=== PATIENT | female | born 1970 | race Caucasian/White ===

== ENCOUNTER 2017-01-10 20:14 | Emergency (ER) | payer BC ==
[2017-01-10 20:27] VITALS: BP 200/120
== END 2017-01-10 22:32 | disposition home or self-care (01) ==
LOC: ED 20:14 → EDBD 20:14 → ED 22:32
DX: S39.012A Strain of muscle, fascia and tendon of lower back, initial encounter (principal); F99 Mental disorder, not otherwise specified; X50.3XXA Overexertion from repetitive movements, initial encounter; Y93.89 Activity, other specified; Y92.89 Other specified places as the place of occurrence of the external cause; Y99.0 Civilian activity done for income or pay; Z88.0 Allergy status to penicillin; Z88.1 Allergy status to other antibiotic agents; Z79.3 Long term (current) use of hormonal contraceptives; Z79.899 Other long term (current) drug therapy
CPT/HCPCS: J1885

== ENCOUNTER 2017-01-14 12:26 | Emergency (ER) | payer BC ==
[~2017-01-14] VITALS: Ht 167.6 cm; Wt 165.3 kg
[2017-01-14 12:33] VITALS: BP 144/97
== END 2017-01-14 13:54 | disposition home or self-care (01) ==
LOC: ED 12:26
DX: Z00.00 Encounter for general adult medical examination without abnormal findings (principal); Z88.0 Allergy status to penicillin; Z88.1 Allergy status to other antibiotic agents